=== PATIENT | female | born 1970 | race Caucasian/White ===

== ENCOUNTER → 2018-07-03 | Outpatient (CLI) | payer BC | LOC: RAD 14:02 | DX: K59.00 Constipation, unspecified (principal) ==

== ENCOUNTER 2023-11-21 15:53 | Emergency (ER) | payer BC ==
[~2023-11-21] VITALS: Ht 160 cm; Wt 92.3 kg
[2023-11-21] MEDS ORDERED: CLONIDINE HYDR0.1 MG PO (17:46)
[2023-11-21] MEDS ORDERED: CARDIZEM CD 18180 MG PO (17:47)
[2023-11-21] MEDS ORDERED: TORSEMIDE100 MG PO (17:47)
[2023-11-21 19:00] LABS: BASO # 0.06 K/mm3 (0.02-0.10); EOS # 0.14 K/mm3 (0.04-0.40); EOS % 1.5 % (1.0-5.0); HEMATOCRIT 32.7 % (37.0-47.0); LYMPH# 1.14 K/mm3 (1.50-4.00); MEAN CELL VOLUME 90 fl (78-100); MEAN CORPUSCULAR HEMOGLOBIN 28 pg (27-31); MEAN CORPUSCULAR HGB CONC 31 g/dL (33-37); MONO # 0.51 K/mm3 (0.20-0.80); PLATELET COUNT 357 K/mm3 (130-400); RED BLOOD COUNT 3.63 M/mm3 (4.10-5.30); RED CELL DISTRIBUTION WIDTH 15.6 % (11.5-14.5); WHITE BLOOD COUNT 9.5 K/mm3 (4.8-10.8)
[2023-11-21 19:08] LABS: ALBUMIN 3.9 g/dL (3.5-5.0)
[2023-11-21 19:09] LABS: CALCIUM 9.3 mg/dL (8.3-10.5)
[2023-11-21 19:10] LABS: TOTAL PROTEIN 7.1 g/dL (6.4-8.3)
[2023-11-21 19:12] LABS: TOTAL BILIRUBIN 0.4 mg/dL (0.2-1.2)
[2023-11-21 21:01] LABS: PH-URINE 6.5 (5.0 - 8.0); URINE APPEARANCE CLEAR (CLEAR); URINE BILIRUBIN NEGATIVE (NEGATIVE); URINE BLOOD 1+ (NEGATIVE); URINE COLOR YELLOW (YELLOW); URINE GLUCOSE TRACE (NEGATIVE); URINE KETONE NEGATIVE (NEGATIVE); URINE LEUKOCYTE ESTERASE NEGATIVE (NEGATIVE); URINE NITRATE NEGATIVE (NEGATIVE); URINE PROTEIN(semi-quant) 3+ (NEGATIVE)
[2023-11-21 21:05] LABS: URINE WBC 0-1 /hpf (0-3)
[2023-11-21 23:05] VITALS: BP 170/84
== END 2023-11-21 22:40 | disposition short-term general hospital (02) ==
LOC: ED 15:53
PROVIDERS: Family Medicine
DX: J81.1 Chronic pulmonary edema (principal); I12.9 Hypertensive chronic kidney disease with stage 1 through stage 4 chronic kidney disease, or unspecified chronic kidney disease; E11.22 Type 2 diabetes mellitus with diabetic chronic kidney disease; N18.9 Chronic kidney disease, unspecified; N17.9 Acute kidney failure, unspecified; Z79.899 Other long term (current) drug therapy
CPT/HCPCS: J0360; J1940